=== PATIENT | female | born 1955 | race Caucasian/White ===

== ENCOUNTER 2017-05-19 16:14 | Emergency (ER) | payer OTHER ==
[~2017-05-19] VITALS: Ht 167.6 cm; Wt 85.6 kg
[~2017-05-19 16:14] MED LIST: ASPIR 8181 M1 PO; B COMPLETE1 EACH PO; BAYER CHILDREN'81 M1 PO; CALTRATE-600 W1 EAC1 PO; CENTRUM COMPLE1 EACH PO; LIPITOR20 MG PO; SERTRALINE HCL50 MG PO; TYLENOL EXTRA500 MG PO; Vicodin,Norco 5/325 PO; oxyCODONE PO
[2017-05-19] MEDS ORDERED: NAPROSYN500 MG PO (18:46)
[2017-05-19] MEDS ORDERED: ZOFRAN ODT4 MG PO (18:46)
[2017-05-19 19:03] VITALS: BP 144/49
== END 2017-05-19 19:04 | disposition home or self-care (01) ==
LOC: EME 16:14
PROC: 3E0234Z Introduction of Serum, Toxoid and Vaccine into Muscle, Percutaneous Approach (ICD-10-PCS; principal; 2017-05-19)
DX: S00.83XA Contusion of other part of head, initial encounter (principal); W22.09XA Striking against other stationary object, initial encounter; Y93.89 Activity, other specified; Z23 Encounter for immunization; E78.5 Hyperlipidemia, unspecified; F32.9 Major depressive disorder, single episode, unspecified; Z90.49 Acquired absence of other specified parts of digestive tract; Z79.82 Long term (current) use of aspirin; Z88.5 Allergy status to narcotic agent; Z88.0 Allergy status to penicillin
CPT/HCPCS: 70450; 70486; 99281; 99284